=== PATIENT | female | born 1960 | race Caucasian/White ===

== ENCOUNTER 2020-08-24 12:57 | Emergency (ER) | payer OTHER ==
[2020-08-24 14:18] LABS: RED BLOOD COUNT 4.48 M/UL (4.00-5.10); WHITE BLOOD COUNT 9.7 K/UL (4.5-11.0)
[2020-08-24 14:41] LABS: BUN/CREATININE RATIO 22 (0-10)
== END 2020-08-24 17:01 | disposition home or self-care (01) ==
LOC: ER1 12:57
PROVIDERS: Physician Assistant
DX: S16.1XXA Strain of muscle, fascia and tendon at neck level, initial encounter (principal); M25.512 Pain in left shoulder; M79.602 Pain in left arm; I48.91 Unspecified atrial fibrillation; Z79.82 Long term (current) use of aspirin; Z88.8 Allergy status to other drugs, medicaments and biological substances; X50.0XXA Overexertion from strenuous movement or load, initial encounter; Y92.009 Unspecified place in unspecified non-institutional (private) residence as the place of occurrence of the external cause
CPT/HCPCS: 71045; 71046; 72040; 73030; 80053; 82550; 82553; 83874; 83880; 84484; 85025; 93005; 99284